=== PATIENT | male | born 1960 | race Caucasian/White ===

== ENCOUNTER 2022-05-20 10:37 | Emergency (ER) | payer OTHER ==
[~2022-05-20] VITALS: Ht 175.3 cm; Wt 80.0 kg
[2022-05-20 10:48] VITALS: BP 139/80
[2022-05-20] MEDS: IBUPROFEN 600MG TABLET PO ONE ×2 (11:30→12:11)
[2022-05-20] MEDS: ACETAMINOPHEN 325MG TABLET PO ONE ×2 (12:11→12:31)
[2022-05-20] MEDS: METHOCARBAMOL 500MG TABLET PO ONE ×2 (12:11→12:31)
[2022-05-20] MEDS ORDERED: ACET-2708 MT (15:12)
[2022-05-20] MEDS ORDERED: CYCL5TAB MT (15:12)
[2022-05-20] MEDS ORDERED: IBUP-2029 MT (15:12)
== END 2022-05-20 16:01 | disposition home or self-care (01) ==
LOC: ER 10:37
DX: S22.31XA Fracture of one rib, right side, initial encounter for closed fracture (principal); S32.019A Unspecified fracture of first lumbar vertebra, initial encounter for closed fracture; S32.029A Unspecified fracture of second lumbar vertebra, initial encounter for closed fracture; W17.89XA Other fall from one level to another, initial encounter; Y93.89 Activity, other specified; Y92.812 Truck as the place of occurrence of the external cause; Y99.8 Other external cause status
CPT/HCPCS: 71046; 72131; 99284